=== PATIENT | female | born 1940 | race Caucasian/White ===

== ENCOUNTER → 2016-09-16 | Outpatient (CLI) | payer MEDICARE ==
[~2016-09-16] MED LIST: CALCIUM 600 W/V1 TAB PO; CITALOPRAM20 MG PO; HCTZ 25MG25 MG PO; LISINOPRIL40 MG PO; METOPROLOL SUCC25 M1 PO; MULTI MINERAL1 TAB PO; OMEPRAZOLE20 M2 PO; POLY IRON PN1 TAB PO; PULMICORT180 MCG/A1 INH; SYMBICORT1 AE2 IH; TOPCARE ASPIRIN81 M1 PO; ZOLPIDEM10 M1 PO
== END ==
LOC: LAB 12:17
DX: N39.0 Urinary tract infection, site not specified (principal)

== ENCOUNTER → 2016-12-07 | Outpatient (CLI) | payer MEDICARE ==
[2015-11-03 15:40] VITALS: BP 152/77
== END ==
LOC: LAB 08:59
DX: D50.9 Iron deficiency anemia, unspecified (principal)

== ENCOUNTER → 2017-02-15 | Outpatient (CLI) | payer MEDICARE ==
[2015-11-03 15:40] VITALS: BP 152/77
== END ==
LOC: MAMMO 08:27
DX: Z12.31 Encounter for screening mammogram for malignant neoplasm of breast (principal)
CPT/HCPCS: G0202

== ENCOUNTER → 2017-03-15 | Outpatient (CLI) | payer MEDICARE ==
[2015-11-03 15:40] VITALS: BP 152/77
== END ==
LOC: LAB 08:46
DX: I10 Essential (primary) hypertension (principal); D50.9 Iron deficiency anemia, unspecified; R39.15 Urgency of urination; J45.20 Mild intermittent asthma, uncomplicated; F34.1 Dysthymic disorder

== ENCOUNTER → 2017-06-20 | Outpatient (CLI) | payer MEDICARE ==
[2015-11-03 15:40] VITALS: BP 152/77
[2017-06-20 16:35] LABS: HEMATOCRIT 44.9 % (37.0-47.0); HEMOGLOBIN 15.2 g/dL (12.5-16.0); MEAN CELL VOLUME 94 fl (78-100); MEAN CORPUSCULAR HEMOGLOBIN 32 pg (27-31); MEAN CORPUSCULAR HGB CONC 34 g/dL (33-37); MEAN PLATELET VOLUME 10.5 fl (7.4-10.4); PLATELET COUNT 207 K/mm3 (130-400); RED CELL DISTRIBUTION WIDTH 12.8 % (11.5-14.5)
[2017-06-20 18:03] LABS: LYMPHOCYTE 36 % (20-51); MONOCYTE 10 % (3-10); NEUTROPHILS 52 % (42-75)
== END ==
LOC: LAB 15:39
PROVIDERS: Optometrist
DX: D50.9 Iron deficiency anemia, unspecified (principal)

== ENCOUNTER → 2017-07-19 | Outpatient (CLI) | payer MEDICARE ==
[2015-11-03 15:40] VITALS: BP 152/77
[2017-07-19 13:09] LABS: URINE APPEARANCE CLEAR; URINE COLOR YELLOW
[2017-07-19 13:10] LABS: URINE BILIRUBIN NEGATIVE (NEGATIVE); URINE BLOOD NEGATIVE (NEGATIVE); URINE GLUCOSE NEGATIVE (NEGATIVE); URINE KETONE NEGATIVE (NEGATIVE); URINE LEUKOCYTE ESTERASE NEGATIVE (NEGATIVE); URINE NITRATE NEGATIVE (NEGATIVE); URINE PROTEIN(semi-quant) NEGATIVE (NEGATIVE); URINE UROBILINOGEN NORMAL (NORMAL); URINE WBC 0-1 /hpf (0-3)
== END ==
LOC: LAB 12:23
PROVIDERS: Urology
DX: N39.0 Urinary tract infection, site not specified (principal)

== ENCOUNTER → 2018-02-27 | Outpatient (CLI) | payer MEDICARE ==
[2015-11-03 15:40] VITALS: BP 152/77
[2018-02-27 09:34] LABS: EOS # 0.3 (0.04-0.40); EOS % 6.9 % (1.0-5.0); HEMATOCRIT 43.3 % (37.0-47.0); HEMOGLOBIN 14.4 g/dL (12.5-16.0); LYMPH# 1.5 (1.50-4.00); MEAN CELL VOLUME 94 fl (78-100); MEAN CORPUSCULAR HEMOGLOBIN 31 pg (27-31); MEAN CORPUSCULAR HGB CONC 33 g/dL (33-37); MONO # 0.4 (0.20-0.80); NEU # 2.6 (1.40-6.50); PLATELET COUNT 202 K/mm3 (130-400); WHITE BLOOD COUNT 4.8 K/mm3 (4.8-10.8)
[2018-02-27 09:54] LABS: POTASSIUM 4.1 mmol/L (3.6-5.0); TOTAL PROTEIN 7.2 g/dL (6.3-8.2)
[2018-02-27 10:07] LABS: ALBUMIN 4.1 g/dL (3.5-5.0); CALCIUM 9.1 mg/dL (8.4-10.2); TOTAL BILIRUBIN 0.5 mg/dL (0.2-1.3)
== END ==
LOC: LAB 09:12
PROVIDERS: Family Medicine
DX: I10 Essential (primary) hypertension (principal); E55.9 Vitamin D deficiency, unspecified; D64.9 Anemia, unspecified; E78.1 Pure hyperglyceridemia

== ENCOUNTER → 2018-03-20 | Outpatient (CLI) | payer MEDICARE ==
[2015-11-03 15:40] VITALS: BP 152/77
== END ==
LOC: MAMMO 09:36
DX: Z12.31 Encounter for screening mammogram for malignant neoplasm of breast (principal)

== ENCOUNTER → 2018-05-09 | Outpatient (CLI) | payer MEDICARE ==
[2015-11-03 15:40] VITALS: BP 152/77
== END ==
LOC: LAB 11:59
DX: N39.0 Urinary tract infection, site not specified (principal)

== ENCOUNTER → 2019-03-18 | Outpatient (CLI) | payer MEDICARE ==
[2015-11-03 15:40] VITALS: BP 152/77
== END ==
LOC: MAMMO 10:42
DX: Z12.31 Encounter for screening mammogram for malignant neoplasm of breast (principal)

== ENCOUNTER 2019-08-28 13:55 | Emergency (ER) | payer MEDICARE ==
[~2019-08-28] VITALS: Wt 72.0 kg
[2019-08-28] MEDS ORDERED: METOPROLOL SUC100 M1 PO (14:22)
[2019-08-28] MEDS ORDERED: SINGULAIR 110 MG/TAB PO (14:22)
[2019-08-28] MEDS ORDERED: CELEXA 20MG20 MG/TA1 PO (14:22)
[2019-08-28] MEDS ORDERED: PRILOSEC 20MG20 MG PO (14:22)
[2019-08-28] MEDS ORDERED: HYDROCHLOROTH12.5 M2 PO (14:22)
[2019-08-28] MEDS ORDERED: PRESERVISION A1 EAC1 PO (14:26)
[2019-08-28] MEDS ORDERED: ALEVE220 M1 PO (14:26)
[2019-08-28 14:42] LABS: EOS # 0.2 (0.04-0.40); EOS % 2.7 % (1.0-5.0); HEMATOCRIT 46.2 % (37.0-47.0); LYMPH# 1.2 (1.50-4.00); MEAN CELL VOLUME 94 fl (78-100); MEAN CORPUSCULAR HEMOGLOBIN 31 pg (27-31); MEAN CORPUSCULAR HGB CONC 33 g/dL (33-37); MEAN PLATELET VOLUME 10.5 fl (7.4-10.4); MONO # 0.6 (0.20-0.80); NEU # 4.8 (1.40-6.50); PLATELET COUNT 202 K/mm3 (130-400); RED BLOOD COUNT 4.91 M/mm3 (4.10-5.30); RED CELL DISTRIBUTION WIDTH 12.9 % (11.5-14.5); WHITE BLOOD COUNT 6.7 K/mm3 (4.8-10.8)
[2019-08-28 15:03] LABS: ALBUMIN 4.2 g/dL (3.4-4.8); POTASSIUM 3.8 mmol/L (3.5-5.1); SODIUM 139 mmol/L (136-145)
[2019-08-28 15:05] LABS: CALCIUM 9.5 mg/dL (8.3-10.5)
[2019-08-28 15:06] LABS: GLUCOSE 109 mg/dL (65-105); TOTAL PROTEIN 7.4 g/dL (6.2-8.1)
[2019-08-28 15:07] LABS: CARBON DIOXIDE 25 mmol/L (23-31)
[2019-08-28 15:08] LABS: TOTAL BILIRUBIN 0.4 mg/dL (0.2-1.2)
[2019-08-28 15:11] LABS: AST-SGOT 27 U/L (5-34)
[2019-08-28 15:12] LABS: ALT/SGPT 22 U/L (0-55)
[2019-08-28 15:24] LABS: TROPONIN-I < 0.03 ng/mL (<0.030)
[2019-08-28 15:27] LABS: PROTHROMBIN TIME 9.4 SECONDS (9.0-12.0)
[2019-08-28 16:27] LABS: URINE COLOR YELLOW
[2019-08-28 16:28] LABS: URINE APPEARANCE HAZY; URINE BILIRUBIN NEGATIVE (NEGATIVE); URINE BLOOD TRACE (NEGATIVE); URINE GLUCOSE NEGATIVE (NEGATIVE); URINE KETONE NEGATIVE (NEGATIVE); URINE LEUKOCYTE ESTERASE 1+ (NEGATIVE); URINE NITRATE POSITIVE (NEGATIVE); URINE PROTEIN(semi-quant) 2+ mg/dL (NEGATIVE); URINE UROBILINOGEN NORMAL (NORMAL)
[2019-08-28 18:11] VITALS: BP 160/75
[2019-08-29] MEDS ORDERED: NATURAL IRON65 MG PO (01:57)
[2019-08-29] MEDS ORDERED: FLONASE ALLERG9.9 ML NS (01:57)
[2019-08-29] MEDS ORDERED: CALCIUM CARBON600 M1 PO (01:58)
[2019-08-29] MEDS ORDERED: VITAMIN C PURE500 M1 PO (01:58)
== END 2019-08-28 18:00 | disposition other institution (70) ==
LOC: ED 13:55
PROVIDERS: Nurse Practitioner Family
DX: R53.1 Weakness (principal); N39.0 Urinary tract infection, site not specified; I10 Essential (primary) hypertension; K21.9 Gastro-esophageal reflux disease without esophagitis; F32.9 Major depressive disorder, single episode, unspecified; Z79.82 Long term (current) use of aspirin; Z87.891 Personal history of nicotine dependence
CPT/HCPCS: A4216; J0696

== ENCOUNTER 2019-08-28 17:44 | Inpatient (IN) | payer MEDICARE ==
[~2019-08-28] VITALS: Ht 162.6 cm; Wt 68.1 kg
[~2019-08-28 17:44] MED LIST changes: +ALEVE220 M1 PO; +CELEXA 20MG20 MG/TA1 PO; +HYDROCHLOROTH12.5 M2 PO; +METOPROLOL SUC100 M1 PO; +PRESERVISION A1 EAC1 PO; +PRILOSEC 20MG20 MG PO; +SINGULAIR 110 MG/TAB PO
[2019-08-28 18:00] VITALS: BP 160/75
[2019-08-28 18:11] VITALS: BP 160/75
--- NOTE | 2019-08-28 18:21 | NUR ---
REPORT RECEIVED FROM ERIC FAUSTIN FROM ER. PATIENT ADMITTED ACUTE FROM ER FOR UTI AND LEFT-SIDED WEAKNESS. NOTABLE LEFT FACIAL DROOP AND UNABLE TO STAND DUE TO LEFT SIDE "GIVING OUT". PATIENT IS AOX3, ABLE TO TALK IN CLEAR FULL SENTENCES. HAS STRENGTH IN ALL FOUR EXTREMETIES BUT NOTICEABLY WEAKER ON LEFT. MRI RESULTS FROM ER IS PENDING. CT SCAN WAS NEGATIVE PER REPORT.
--- NOTE | 2019-08-28 19:20 | NUR ---
Report received from Lindsey Perkins RN. Pt resting in bed, bed alarm set and call light with in reach. Daughter, son-in-law and grand children at side. Awake and a/o x 3, pleasant and cooperative. Answers all questions appropriately.
--- NOTE | 2019-08-28 20:48 | NUR ---
C/o of headache in right and left temporal area. States she had dealt with headaches at home. Occasionaly headache would be located behind the eyes. Denies having any headache behind her eyes at this time. Given tylenol two PO with sipps of water.
[2019-08-28 21:23] VITALS: BP 164/82
[2019-08-29] VITALS (9 sets, daily range): BP systolic 149–189; BP diastolic 73–90
--- NOTE | 2019-08-29 00:03 | NUR ---
Continues to c/o of headache. States tylenol has helped. Rates 1-2 out 10. Given toradol 30mg SIVP. Pt requesting to have sipps of water. Kayla Sahni APRN notified, ok pt to have a few ice chips. Given ice chips and mouth swabs. Bed alarm set and call light with in reach.
[2019-08-29] MEDS ORDERED: FLONASE ALLERG9.9 ML NS (01:57)
[2019-08-29] MEDS ORDERED: NATURAL IRON65 MG PO (01:57)
[2019-08-29] MEDS ORDERED: VITAMIN C PURE500 M1 PO (01:58)
[2019-08-29] MEDS ORDERED: CALCIUM CARBON600 M1 PO (01:58)
--- NOTE | 2019-08-29 02:37 | NUR ---
Up to bed side commode, a/o x 4. Denied nausea, headache or any type of pain. pain. C/o of feeling like she was "going towards her left." Pt noted to be leaning to her left while sitting on side of bed. She set herself back up straight twice. Three person assist to bed side commode, she beared full weight, gait unsteady. She voided a small amount of unmeasured urine. Three person assist with transfer back into bed. 0200 blood pressure before sitting up was 149/90, pulse 56. 0205 Blood pressure while sitting up along side of the bed was 189/82, pulse 57. I informed pt that we would recheck her blood pressure in about 20 minutes. 0230 blood pressure 154/78, pulse 61. 0235 Kayla Sahni APRN notified, no new orders at this time.
--- NOTE | 2019-08-29 02:40 | NUR ---
Small fan placed in pt room, pt stated she had a fan on when she slept at home.
--- NOTE | 2019-08-29 06:15 | NUR ---
Favio Guerra CNA reported pt informed her that the fan in her room helped her to go to sleep.
[2019-08-29 07:09] LABS: EOS # 0.1 (0.04-0.40); EOS % 2.2 % (1.0-5.0); HEMATOCRIT 43.3 % (37.0-47.0); HEMOGLOBIN 14.1 g/dL (12.5-16.0); LYMPH# 1.7 (1.50-4.00); MEAN CELL VOLUME 93 fl (78-100); MEAN CORPUSCULAR HEMOGLOBIN 30 pg (27-31); MEAN CORPUSCULAR HGB CONC 33 g/dL (33-37); MEAN PLATELET VOLUME 10.3 fl (7.4-10.4); MONO # 0.6 (0.20-0.80); PLATELET COUNT 183 K/mm3 (130-400); RED BLOOD COUNT 4.64 M/mm3 (4.10-5.30); RED CELL DISTRIBUTION WIDTH 12.6 % (11.5-14.5); WHITE BLOOD COUNT 5.5 K/mm3 (4.8-10.8)
[2019-08-29 07:11] LABS: POTASSIUM 3.5 mmol/L (3.5-5.1)
[2019-08-29 07:13] LABS: CALCIUM 9.2 mg/dL (8.3-10.5)
--- NOTE | 2019-08-29 07:40 | NUR ---
Report to Olivia Lewis RN
--- NOTE | 2019-08-29 10:37 | NUR ---
THE PT PIVOT TRANSFERS TO THE BEDSIDE COMMODE WITH THE ASSISTANCE OF THIS RN AND AIDA RIDER. THE PT THEN WALKS AROUND THE BED TO THE RECLINER CHAIR WITH THE ASSISTANCE OF TWO AND A GAIT BELT. THE PT'S GAIT IS SLOW AND PT IS WEAK. SHE STATES THAT SHE IS USUALLY INDEPENDENT AND VERY ACTIVE AT HOME SO THIS IS VERY UNUSUAL FOR HER. THE PT IS SITTING IN RECLINER CHAIR AT THIS TIME WITH HER DAUGHTER IN THE ROOM. PT DENIES ANY PAIN OR NEEDS.
--- NOTE | 2019-08-29 13:09 | NUR ---
The pt walked to the restroom from her reciner chair with the assistance of AIDA Joel and using a walker. The pt has noticeable left sided weakness with ambulation.
--- NOTE | 2019-08-29 19:35 | NUR ---
Pt lives at home alone, independently, her daughter lives nearby, and checks on her frequently. She has a good friend, Kieran Murillo, who also checks on her. Pt is aware that she has suffered a stroke, and she has been working w/ therapists who have recommended IPR vs SWB LOC. She is aware that therapists have recommended IPR, and is told that the closest are at [facility] or [facility] in [place]. She is told the benefits of IPR vs SWB LOC and she states that she really does not want to have to go out of town, she verbalizes understanding that working more w/ her damaged nerves and muscles could help her improve more and faster. She continues to say she does not wish to go out of town, but would be agreeable to therapy in a SWB LOC in [place].
--- NOTE | 2019-08-29 22:00 | NUR ---
2139 Pt requesting medication to help her sleep. She stated that she takes Aleve PM at home. Pt also reported that her left arm and hand felt "numb and tingly." When asked what time the numbness and tingling started, pt stated "around a hour." No c/o's of pain. When asked she said she still had a headache and rated it around a [address] Roca notified. Blood pressure recheck per Dr Roca request. Blood pressure 174/74. Doctor notified. Doctor notified patient had received tylenol 650mg PO at 1725. 2151 Order received to given benadryl 25mg PO and to give a second dose of tylenol 650mg PO. 2155 Pt given tylenol and benadryl. Offered ice pack, pt declined.
--- NOTE | 2019-08-29 22:15 | NUR ---
SPOKE TO FELI HORNE ABOUT POSSIABLITY OF TRANSFERING PT TO A INPATIENT THERAPY REHAB. DAUGHTER STATES THAT SHE WAS IN ROOM WITH HER MOTHER WHEN PHYSICAL THERAPY SPOKE TO HER ABOUT POSSIABLITY. DAUGHTER AGRESS WITH HER MOTHER AND WANTS MOTHER TO STAY HERE AT [facility]. SHE IS WORRIED THE IF HER MOTHER IS SENT WAY TO A DIFFERENT FACILITY PREET WILL BECOME SO DEPRESSE THAT IT WILL HAVE ADVERSE EFFECTS FOR THE PATIENT. DAUGHTER STATES THAT IS WHAT HAD HAPPENED TO HER FATHER AFTER HIS ILLNESS. DAUGHTER STATES "I WANT HER TO GO SWING BED FOR A WEEK AND SEE HOW SHE DOES." EXPLAINED TO DAUGHTER THAT NOTHING WOULD HAPPEN OVER THE WEEKEND BUT IT WOULD GIVE FAMILY SOMETHING TO THINK ABOPUT OVER THE WEEKEND.
--- NOTE | 2019-08-29 22:20 | NUR ---
Daughter and granddaughter have been at pt's bedside. At 2215 both daughter and granddaughter left facility. Pt's bed alarm set and call light with in reach.
--- NOTE | 2019-08-30 00:30 | NUR ---
Resting in bed, eyes close and even respirations. Open eyes when spoken too. Neuro checks done. See process intervention. Pt denies headache. When asked if her left arm still felt numb and tingly. Pt stated "no, it gone." Pt states she has been sleeping "well."
[2019-08-30 01:42] VITALS: BP 167/75
[2019-08-30 06:17] VITALS: BP 164/81
--- NOTE | 2019-08-30 07:45 | NUR ---
Report given to Lindsey Perkins RN
[2019-08-30 11:28] VITALS: BP 135/76
--- NOTE | 2019-08-30 12:01 | NUR ---
Patient sitting in recliner in her room, daughter visiting her. She denies any pain or shortness of breath. She does have mild decreased strength on her left upper extremity, and states her left leg feels weaker than the right, and it does randomly "give out" when she stands. She does state that she has improved in strength since admission.
--- NOTE | 2019-08-30 12:08 | NUR ---
Spoke with Starla Edgar (pts daughter) She has decided she strongly prefers inpatient rehab rather than SWB admission.
[2019-08-30 15:18] VITALS: BP 133/61
[2019-08-30 18:48] VITALS: BP 132/72
--- NOTE | 2019-08-30 21:00 | NUR ---
Patient sitting in bed and daughter in chair at bedside. Neuros completed. L side Lower extremity she can lift and hold. Patient mentioned that she has had some tingling sensation begin on the L side of her mouth. She is alert and oriented x4. She has a slight headache but stated that she had a headache earlier today but it is much less. Patient provided tylenol. BP with a systolic of 161, to continue to be monitored. Previous shift, INT stated that leaked during flush. 10cc of NS flushed with no leaking. To keep INT in place at this time. The leak may have been due to positioning of the arm. Tylenol and benadryl to be provided to help patient sleep, per Dr. Roca.
[2019-08-30 22:48] VITALS: BP 161/79
[2019-08-31 01:42] VITALS: BP 148/74
[2019-08-31 06:03] VITALS: BP 150/72
--- NOTE | 2019-08-31 06:08 | NUR ---
Patient slept well through the night, except when having to wake for neuro checks. Patient stated that her mouth was "not tingling as much." No pain. Neuro assessments demonstrate normal status and full strength. BP through the night systolic went from 161 to 140s to 151. Lisinopril was increased yesterday and blood pressure will continue to be monitored.
--- NOTE | 2019-08-31 07:20 | NUR ---
Report given to ERIC Goins.
--- NOTE | 2019-08-31 09:00 | NUR ---
Pt a/o x 4 and very pleasant. Speech clear and answers questions appropriately. Tongue deviates just slightly to the right. Some facial droop left side. 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 Lift and hold test performed well. Pt states that she still feels like her left leg is weak also. Ambulates with walker to and from bathroom with steady gait at this time w/ CGA. Pt takes pills whole in appleasauce without problems. Daughter here and brings pt clean clothes. Pt would like to ambulate today. Do notice when she was sitting on stool that she does lean to the left - not new today. Family expressed interest yesterday in [facility] for further rehab. [facility] called and they do have beds but unsure if they are already accounted for so encouraged staff to call back tomorrow. Family updated.
[2019-08-31 09:47] VITALS: BP 146/78
--- NOTE | 2019-08-31 10:30 | NUR ---
Pt has not had a stool since and would like laxative.
--- NOTE | 2019-08-31 12:30 | NUR ---
Dr. Roca notified that INT removed d/t leaking. Order received to d/c INT order. Also neuro checks changed to q 4 hours while awake per order. Pt given miralax per request for pt's request for no stool since . Pt denies being uncomfortable.
[2019-08-31 14:02] VITALS: BP 159/77
--- NOTE | 2019-08-31 14:11 | NUR ---
Friend here to visit. Plan to go for a walk after friend leaves. Tele continues - RSR 60's at this time.
--- NOTE | 2019-08-31 15:00 | NUR ---
Pt ambulates about 20 ft w/ walker and CGA and returns to room. States she did pretty well. 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
--- NOTE | 2019-08-31 17:44 | NUR ---
Ambulates in ceja w/ staff about 20 feet and returns to chair at bedside - tolerates well. No change in neuros - still some weakness of left hand and tingling of left hand. Denies any pain.
[2019-08-31 18:04] VITALS: BP 150/81
--- NOTE | 2019-08-31 19:00 | NUR ---
Pt requested tylenol for ROMEO of bilateral druze areas. Family here. No facial droop noted this evening. Smile equal. Tongue still deviates a little to the right. 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 NASREEN.
--- NOTE | 2019-08-31 21:28 | NUR ---
Assisted patient to bathroom. One assist with walker and gaitbelt. Patient did well with ambulation. Patient denies pain at this time. Reports the Tylenol helped her headache. Request Benadryl to help her sleep tonight. 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 Facial expression is equal and Pupils equal and reactive. Patient took one pill at a time with applesauce and did well. Assisted to comfortable position. Call light within reach. Bed alarm on. Will continue to monitor.
[2019-08-31 22:01] VITALS: BP 153/72
[2019-09-01 02:22] VITALS: BP 152/79
[2019-09-01 05:53] VITALS: BP 123/74
--- NOTE | 2019-09-01 08:49 | NUR ---
Spoke with Jocelyn with [facility], in [place], and discussed pt's interest in receiving therapy with them. Jocelyn had already been contacted by pt's issa and was aware of the potential referral. Faxed clinicals, per request, to fax # [phone]. Will send updated therapy notes when available. Jocelyn will try to meet with pt today to screen for potential admission. Will continue to follow for discharge needs.
[2019-09-01 10:03] VITALS: BP 150/79
[2019-09-01 14:26] VITALS: BP 145/81
--- NOTE | 2019-09-01 15:29 | NUR ---
Spoke with Jocelyn with [facility]. Pt has been accepted to [facility]. They are able to accept her on 09/01. Pt and daughter, Starla, updated of plan. Will plan on discharge tomorrow morning around 0900. Nurse to Nurse call can be made to [phone]. Tamara Richard APRN informed of discharge plans. She will make doc to doc call tomorrow morning to Dr. Catalan; she is aware of number. Discharge paperwork may be faxed to fax# [phone]. Primary nurse updated. Pt and family voice understanding of plan. Pt's granddaughter to provide transportation and bring pt to the Admissions Entrance. Pt and family voiced understanding of plan, denies questions or concerns at this time. Will continue to follow for discharge needs.
--- NOTE | 2019-09-01 17:05 | NUR ---
Tamara Richard APRN at bedside.
[2019-09-01 18:09] VITALS: BP 136/65
[2019-09-01 21:44] VITALS: BP 169/84
[2019-09-02 05:28] VITALS: BP 138/83
[2019-09-02] MEDS ORDERED: ATORVASTATIN CA10 MG PO (07:09)
[2019-09-02] MEDS ORDERED: ZESTRIL5 M1 PO (07:09)
[2019-09-02 08:28] LABS: URINE APPEARANCE CLEAR; URINE BILIRUBIN NEGATIVE (NEGATIVE); URINE BLOOD NEGATIVE (NEGATIVE); URINE COLOR YELLOW; URINE GLUCOSE NEGATIVE (NEGATIVE); URINE KETONE NEGATIVE (NEGATIVE); URINE LEUKOCYTE ESTERASE TRACE (NEGATIVE); URINE MUCUS PRESENT (NOT PRESENT); URINE NITRATE NEGATIVE (NEGATIVE); URINE PROTEIN(semi-quant) NEGATIVE (NEGATIVE); URINE UROBILINOGEN NORMAL (NORMAL)
--- NOTE | 2019-09-02 09:29 | NUR ---
Patient alert and oriented. Denies pain. Shift assessment and neuro assessments completed. Scheduled medications administered per orders. Patient swallows pills whole in applesauce one at a time. Patient transferred to Inpatient rehab at [facility]. Patient's granddaughter Rylee is here to transport patient. Report called to ERIC Gaviria at [facility]. Patient out of facility via wheelchair to [facility] at this time. Transfers into PO without incident.
== END 2019-09-02 09:29 | DRG 65 ==
LOC: MED/SURG 17:44
PROVIDERS: Nurse Practitioner Primary Care; ADMIT Nurse Practitioner Family
DX: I63.9 Cerebral infarction, unspecified (principal); N39.0 Urinary tract infection, site not specified; G81.94 Hemiplegia, unspecified affecting left nondominant side; I10 Essential (primary) hypertension; F32.9 Major depressive disorder, single episode, unspecified; K21.9 Gastro-esophageal reflux disease without esophagitis; R29.810 Facial weakness; R29.702 NIHSS score 2; E78.5 Hyperlipidemia, unspecified; R47.81 Slurred speech; H26.9 Unspecified cataract; Z79.82 Long term (current) use of aspirin; Z87.891 Personal history of nicotine dependence
CPT/HCPCS: A4216; J0696; J1650; J1885

== ENCOUNTER → 2020-01-01 | Outpatient (CLI) | payer MEDICARE ==
[~2020-01-01] MED LIST changes: +ATORVASTATIN CA10 MG PO; +CALCIUM CARBON600 M1 PO; +FLONASE ALLERG9.9 ML NS; +NATURAL IRON65 MG PO; +VITAMIN C PURE500 M1 PO; +ZESTRIL5 M1 PO
== END ==
LOC: RAD 12:45
DX: K22.4 Dyskinesia of esophagus (principal); K44.9 Diaphragmatic hernia without obstruction or gangrene

== ENCOUNTER → 2020-03-11 | Day surgery (SDC) | payer MEDICARE | LOC: MSO 07:21 | DX: K22.2 Esophageal obstruction (principal); K21.9 Gastro-esophageal reflux disease without esophagitis; Z86.73 Personal history of transient ischemic attack (TIA), and cerebral infarction without residual deficits; Z79.82 Long term (current) use of aspirin; I10 Essential (primary) hypertension; D50.9 Iron deficiency anemia, unspecified; M81.0 Age-related osteoporosis without current pathological fracture; F32.9 Major depressive disorder, single episode, unspecified; E78.1 Pure hyperglyceridemia; G47.33 Obstructive sleep apnea (adult) (pediatric); J45.909 Unspecified asthma, uncomplicated | CPT/HCPCS: 00731; C1769; J2704; J7120 ==

== ENCOUNTER → 2020-03-31 | Outpatient (CLI) | payer MEDICARE | LOC: MAMMO 10:45 | DX: Z12.31 Encounter for screening mammogram for malignant neoplasm of breast (principal) ==

== ENCOUNTER → 2020-04-05 | Outpatient (CLI) | payer MEDICARE ==
[2020-04-05 08:24] LABS: EOS # 0.2 (0.04-0.40); EOS % 3.5 % (1.0-5.0); HEMOGLOBIN 14.9 g/dL (12.5-16.0); LYMPH# 1.8 (1.50-4.00); MEAN CELL VOLUME 95 fl (78-100); MEAN CORPUSCULAR HEMOGLOBIN 31 pg (27-31); MEAN CORPUSCULAR HGB CONC 32 g/dL (33-37); MEAN PLATELET VOLUME 10.3 fl (7.4-10.4); MONO # 0.5 (0.20-0.80); NEU # 3.2 (1.40-6.50); PLATELET COUNT 176 K/mm3 (130-400); RED BLOOD COUNT 4.86 M/mm3 (4.10-5.30); RED CELL DISTRIBUTION WIDTH 13.1 % (11.5-14.5); WHITE BLOOD COUNT 5.7 K/mm3 (4.8-10.8)
[2020-04-05 08:39] LABS: CALCIUM 8.9 mg/dL (8.3-10.5)
[2020-04-05 08:40] LABS: TOTAL PROTEIN 6.9 g/dL (6.2-8.1)
[2020-04-05 08:42] LABS: TOTAL BILIRUBIN 0.9 mg/dL (0.2-1.2)
== END ==
LOC: LAB 08:01
PROVIDERS: Physician Assistant
DX: Z00.00 Encounter for general adult medical examination without abnormal findings (principal); I10 Essential (primary) hypertension; M81.0 Age-related osteoporosis without current pathological fracture; E78.1 Pure hyperglyceridemia; K21.9 Gastro-esophageal reflux disease without esophagitis; I63.9 Cerebral infarction, unspecified

== ENCOUNTER → 2020-09-01 | Outpatient (CLI) | payer MEDICARE ==
[2020-09-01 16:22] LABS: PH-URINE 5.5 (5.0 - 8.0); URINE APPEARANCE CLOUDY; URINE BILIRUBIN NEGATIVE (NEGATIVE); URINE BLOOD TRACE (NEGATIVE); URINE COLOR YELLOW; URINE GLUCOSE NEGATIVE (NEGATIVE); URINE KETONE NEGATIVE (NEGATIVE); URINE LEUKOCYTE ESTERASE TRACE (NEGATIVE); URINE NITRATE POSITIVE (NEGATIVE); URINE PROTEIN(semi-quant) TRACE mg/dL (NEGATIVE); URINE UROBILINOGEN NORMAL (NORMAL)
== END ==
LOC: LAB 12:19
PROVIDERS: Family Medicine
DX: R30.0 Dysuria (principal)

== ENCOUNTER → 2021-04-05 | Outpatient (CLI) | payer MEDICARE | LOC: MAMMO 11:26 | DX: Z12.31 Encounter for screening mammogram for malignant neoplasm of breast (principal) ==

== ENCOUNTER → 2021-04-18 | Outpatient (CLI) | payer MEDICARE ==
[2021-04-18 12:17] LABS: BASO # 0.03 K/mm3 (0.02-0.10); EOS # 0.19 K/mm3 (0.04-0.40); HEMATOCRIT 43.9 % (37.0-47.0); HEMOGLOBIN 14.1 g/dL (12.5-16.0); LYMPH# 2.17 K/mm3 (1.50-4.00); MEAN CELL VOLUME 95 fl (78-100); MEAN CORPUSCULAR HEMOGLOBIN 31 pg (27-31); MEAN CORPUSCULAR HGB CONC 32 g/dL (33-37); MEAN PLATELET VOLUME 10.2 fl (7.4-10.4); MONO # 0.56 K/mm3 (0.20-0.80); NEU # 3.43 K/mm3 (1.40-6.50); PLATELET COUNT 206 K/mm3 (130-400); RED BLOOD COUNT 4.62 M/mm3 (4.10-5.30); RED CELL DISTRIBUTION WIDTH 12.8 % (11.5-14.5); WHITE BLOOD COUNT 6.4 K/mm3 (4.8-10.8)
[2021-04-18 12:34] LABS: ALBUMIN 4.1 g/dL (3.4-4.8); POTASSIUM 4.2 mmol/L (3.5-5.1)
[2021-04-18 12:35] LABS: CALCIUM 10.3 mg/dL (8.3-10.5)
[2021-04-18 12:36] LABS: TOTAL PROTEIN 7.4 g/dL (6.2-8.1)
[2021-04-18 12:38] LABS: TOTAL BILIRUBIN 0.8 mg/dL (0.2-1.2)
== END ==
LOC: LAB 11:57
PROVIDERS: Family Medicine
DX: Z00.00 Encounter for general adult medical examination without abnormal findings (principal); E78.5 Hyperlipidemia, unspecified; M81.0 Age-related osteoporosis without current pathological fracture

== ENCOUNTER → 2021-09-22 | Outpatient (CLI) | payer MEDICARE ==
[2021-09-22 10:31] LABS: BASO # 0.03 K/mm3 (0.02-0.10); EOS # 0.39 K/mm3 (0.04-0.40); EOS % 5.8 % (1.0-5.0); HEMATOCRIT 43.2 % (37.0-47.0); HEMOGLOBIN 13.6 g/dL (12.5-16.0); LYMPH# 1.59 K/mm3 (1.50-4.00); MEAN CELL VOLUME 94 fl (78-100); MEAN CORPUSCULAR HEMOGLOBIN 30 pg (27-31); MEAN CORPUSCULAR HGB CONC 32 g/dL (33-37); MEAN PLATELET VOLUME 10.5 fl (7.4-10.4); MONO # 0.82 K/mm3 (0.20-0.80); NEU # 3.88 K/mm3 (1.40-6.50); PLATELET COUNT 186 K/mm3 (130-400); RED BLOOD COUNT 4.59 M/mm3 (4.10-5.30); WHITE BLOOD COUNT 6.7 K/mm3 (4.8-10.8)
[2021-09-22 10:33] LABS: POTASSIUM 3.7 mmol/L (3.5-5.1)
[2021-09-22 10:34] LABS: CALCIUM 9.4 mg/dL (8.3-10.5)
[2021-09-22 10:35] LABS: TOTAL PROTEIN 7.7 g/dL (6.2-8.1)
[2021-09-22 10:37] LABS: TOTAL BILIRUBIN 0.7 mg/dL (0.2-1.2)
[2021-09-22 11:46] LABS: D-DIMER 0.47 mg/L FEU (0.15-0.50)
== END ==
LOC: LAB 09:56
PROVIDERS: Nurse Practitioner
DX: R04.2 Hemoptysis (principal)

== ENCOUNTER → 2022-03-14 | Outpatient (CLI) | payer MEDICARE ==
[2022-03-14 12:03] LABS: BASO # 0.03 K/mm3 (0.02-0.10); EOS # 0.21 K/mm3 (0.04-0.40); EOS % 3.2 % (1.0-5.0); HEMATOCRIT 39.9 % (37.0-47.0); MEAN CELL VOLUME 85 fl (78-100); MEAN CORPUSCULAR HEMOGLOBIN 25 pg (27-31); MEAN CORPUSCULAR HGB CONC 30 g/dL (33-37); MEAN PLATELET VOLUME 10.4 fl (7.4-10.4); MONO # 0.66 K/mm3 (0.20-0.80); NEU # 3.38 K/mm3 (1.40-6.50); PLATELET COUNT 223 K/mm3 (130-400); RED BLOOD COUNT 4.72 M/mm3 (4.10-5.30); RED CELL DISTRIBUTION WIDTH 15.9 % (11.5-14.5); WHITE BLOOD COUNT 6.5 K/mm3 (4.8-10.8)
[2022-03-14 12:50] LABS: ALBUMIN 4.2 g/dL (3.4-4.8); POTASSIUM 4.6 mmol/L (3.5-5.1)
[2022-03-14 12:51] LABS: CALCIUM 9.5 mg/dL (8.3-10.5)
[2022-03-14 12:52] LABS: TOTAL PROTEIN 7.3 g/dL (6.2-8.1)
[2022-03-14 12:54] LABS: TOTAL BILIRUBIN 0.5 mg/dL (0.2-1.2)
== END ==
LOC: LAB 11:38
PROVIDERS: Family Medicine
DX: Z00.00 Encounter for general adult medical examination without abnormal findings (principal); Z12.31 Encounter for screening mammogram for malignant neoplasm of breast; Z23 Encounter for immunization; K90.9 Intestinal malabsorption, unspecified; E78.5 Hyperlipidemia, unspecified; E03.9 Hypothyroidism, unspecified; I63.9 Cerebral infarction, unspecified; F32.9 Major depressive disorder, single episode, unspecified; K21.9 Gastro-esophageal reflux disease without esophagitis; E78.1 Pure hyperglyceridemia; M81.0 Age-related osteoporosis without current pathological fracture; G47.30 Sleep apnea, unspecified; E55.9 Vitamin D deficiency, unspecified

== ENCOUNTER → 2022-04-12 | Outpatient (CLI) | payer MEDICARE | LOC: MAMMO 08:30 | DX: Z12.31 Encounter for screening mammogram for malignant neoplasm of breast (principal) ==

== ENCOUNTER → 2022-05-31 | Outpatient (CLI) | payer MEDICARE ==
[~2022-05-31] MED LIST changes: +AMLODIPINE BES2.5 MG PO
== END ==
LOC: LAB 15:22
DX: I10 Essential (primary) hypertension (principal); R26.81 Unsteadiness on feet; R06.09 Other forms of dyspnea; R82.998 Other abnormal findings in urine; Z87.440 Personal history of urinary (tract) infections

== ENCOUNTER → 2023-10-16 | Outpatient (CLI) | payer MEDICARE ==
[2023-10-16 08:22] LABS: BASO # 0.03 K/mm3 (0.02-0.10); EOS % 4.8 % (1.0-5.0); HEMATOCRIT 43.5 % (37.0-47.0); HEMOGLOBIN 13.8 g/dL (12.5-16.0); MEAN CELL VOLUME 99 fl (78-100); MEAN CORPUSCULAR HEMOGLOBIN 31 pg (27-31); MEAN CORPUSCULAR HGB CONC 32 g/dL (33-37); MEAN PLATELET VOLUME 9.9 fl (7.4-10.4); MONO # 0.58 K/mm3 (0.20-0.80); NEU # 3.48 K/mm3 (1.40-6.50); PLATELET COUNT 185 K/mm3 (130-400); RED CELL DISTRIBUTION WIDTH 12.5 % (11.5-14.5); WHITE BLOOD COUNT 6.3 K/mm3 (4.8-10.8)
[2023-10-16 08:54] LABS: ALBUMIN 4.1 g/dL (3.4-4.8)
[2023-10-16 08:55] LABS: CALCIUM 9.5 mg/dL (8.3-10.5)
[2023-10-16 08:57] LABS: TOTAL PROTEIN 6.9 g/dL (6.2-8.1)
[2023-10-16 08:59] LABS: TOTAL BILIRUBIN 0.7 mg/dL (0.2-1.2)
== END ==
LOC: LAB 08:09
PROVIDERS: Nurse Practitioner
DX: Z00.00 Encounter for general adult medical examination without abnormal findings (principal)

== ENCOUNTER → 2023-10-30 | Outpatient (CLI) | payer MEDICARE | LOC: RAD 07:12 | DX: K22.89 Other specified disease of esophagus (principal); K44.9 Diaphragmatic hernia without obstruction or gangrene ==